=== PATIENT | male | born 1990 | race Caucasian/White ===

== ENCOUNTER 2016-04-11 15:24 | Emergency (ER) | payer OTHER ==
[~2016-04-11] VITALS: Ht 175.3 cm; Wt 95.5 kg
[2016-04-11 15:30] VITALS: Ht 175.3 cm; Wt 95.5 kg
[2016-04-11] MEDS ORDERED: HYDROCODONE/APAP (5/325) TAB PO ONE (18:00)
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
[2016-04-11] MEDS ORDERED: IBUP-1542 PO (18:51)
[2016-04-11] MEDS ORDERED: CYCL5TAB PO (18:52)
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
[2016-04-11 20:16] VITALS: BP 142/87; PULSE 81; RESP 20
== END 2016-04-11 20:15 | disposition home or self-care (01) ==
LOC: FTE 15:24
DX: S19.9XXA Unspecified injury of neck, initial encounter (principal); S39.92XA Unspecified injury of lower back, initial encounter; V49.50XA Passenger injured in collision with unspecified motor vehicles in traffic accident, initial encounter
CPT/HCPCS: 72040; 72100